=== PATIENT | male | born 1955 | race Caucasian/White ===

== ENCOUNTER 2018-09-03 10:34 | Outpatient (CLI) | payer MEDICARE ==
[2018-09-03 11:17] LABS: Estimated GFR-MDRD - POC Greater than 90
--- NOTE | 2018-09-03 13:31 | CT ---
CT ABDOMEN WITH ORAL AND IV CONTRAST: Date: 09/03/18 HISTORY: Chronic pancreatitis, epigastric pain. FINDINGS: Comparison made with exam of 03/14/15. The lung bases are clear. An 8.0 mm cyst in the liver is stable. The spleen, pancreas, adrenal glands , and left kidney are normal. Cysts in the right kidney are again seen. No free air, free fluid, or l ymphadenopathy seen in the abdomen. There are vascular calcifications without evidence of aneurysmal dilatation of the abdominal aorta. The small bowel loops are not abnormally dilated. Degenerative migue nges are present in the spine. A small, fat-containing ventral hernia is again seen. IMPRESSION: 1. Hepatic and right renal cyst. 2. Small, fat-containing ventral hernia. POS: OFF
== END 2018-09-03 10:35 | disposition home or self-care (01) ==
LOC: BICCT 10:34
PROVIDERS: ATTEND Internal Medicine Gastroenterology
DX: Z12.11 Encounter for screening for malignant neoplasm of colon (principal); K86.1 Other chronic pancreatitis; N28.1 Cyst of kidney, acquired; K76.89 Other specified diseases of liver; K43.9 Ventral hernia without obstruction or gangrene
CPT/HCPCS: 74160; 82565

== ENCOUNTER 2020-09-25 00:18 | Inpatient (IN) | payer MEDICARE ==
[2020-09-25] MEDS ORDERED: Ondansetron PF 4 MG/2 ML Vial ONE (00:40)
[2020-09-25 01:02] LABS: #Basophils 0.1 thou/uL (0.0-0.2); #Eosinphils 0.1 thou/uL (0.0-0.7); #Lymphocytes 2.7 thou/uL (1.20-3.40); #Monocytes 1.3 thou/uL (0.11-0.59); #Neutrophils 10.9 thou/uL (1.40-6.50); %Basophils 0.4 % (0.0-1.0); %Eosinophils 0.4 % (0.0-10.0); %Lymphocytes 18.2 % (21.0-51.0); %Monocytes 8.4 % (0.0-10.0); %Neutrophils 72.6 % (42.0-75.0); Hemoglobin 14.7 g/dL (14.0-18.0); Mean Corpuscular HGB CONC 35.1 g/dL (32.0-36.0); Mean Corpuscular Volume 91.1 fL (78.0-98.0); Mean Platelet Volume 9.9 fL (7.4-10.4); Platelet Count 179 thou/uL (130-400); Red Blood Cell (RBC) Count 4.59 mill/uL (4.70-6.10)
[2020-09-25] MEDS ORDERED: Aspirin Chewable 81 MG TAB ONE ×2 (01:03)
[2020-09-25 01:25] LABS: ALT (SGPT) 50 U/L (8-55); AST (SGOT) 158 U/L (5-34); Albumin 3.7 g/dL (3.4-4.8); Alkaline Phosphatase 72 U/L (40-110); Anion Gap 14 mmol/L (10-20); BUN (Urea Nitrogen) 11 mg/dL (8.4-25.7); Bilirubin, Total 0.8 mg/dL (0.2-1.2); Calc. Creatinine Clearance 0 mL/min (70-130); Calcium 8.9 mg/dL (7.8-10.44); Carbon Dioxide 24 mmol/L (23-31); Chloride 98 mmol/L (98-107); Globulin 3.8 g/dL (2.4-3.5); Glucose 295 mg/dL (80-115); Potassium 4.4 mmol/L (3.5-5.1); Protein, Total 7.5 g/dL (5.8-8.1); Sodium 132 mmol/L (136-145)
[2020-09-25 01:37] LABS: INR-International Normal Ratio 1.1; PTT 32.9 sec (22.9-36.1); Prothrombin Time 14.3 sec (12.0-14.7)
[2020-09-25] MEDS ORDERED: Nitroglycerin 100MG/250ML BOT 250 ML ONE (01:47)
[2020-09-25] MEDS ORDERED: Heparin 10,000 UNITS/ 10 ML VIAL ONE ×3 (01:47→13:05)
[2020-09-25] MEDS ORDERED: Verapamil 5 MG/2 ML VIAL ONE (01:48)
[2020-09-25] MEDS ORDERED: Adenosine 6 MG/2 ML VIAL ONE (01:48)
[2020-09-25 02:22] LABS: SARS-CoV-2 NAA Rapid Test Not Detected (NotDetected)
[2020-09-25] MEDS ORDERED: Milk Of Magnesia 30 ML UDCUP PO PRN (02:46)
[2020-09-25] MEDS ORDERED: Zolpidem Tartrate 5 MG TAB PO PRN (02:46)
[2020-09-25] MEDS ORDERED: traMADol HCl 50 MG TAB PO PRN (02:46)
[2020-09-25] MEDS ORDERED: Mag-Al 1200 mg/1200 mg/30 ML UDCUP PO PRN (02:46)
[2020-09-25] MEDS ORDERED: Acetaminophen/Codeine 30-300mg Tablet PO PRN (02:46)
[2020-09-25 02:57] LABS: CKMB 78.4 ng/mL (0-6.6)
[2020-09-25] MEDS ORDERED: Sodium Chloride 0.9% 1,000 ML IV SCH (03:00)
[2020-09-25 03:17] VITALS: BMI 27.2
--- NOTE | 2020-09-25 03:35 | CON ---
DATE OF CONSULTATION: REASON FOR CONSULTATION: Acute FL. HISTORY OF PRESENT ILLNESS: Mr. Welch is a 64-year-old gentleman, previous history of diabetes mellitus and tobacco abuse, who recently presented with fevers, chills, weakness, and congestion. He thought he had COVID. He said he proceeded to the emergency room for testing. He did give a previous history of chest pain on his review of systems that occurred yesterday. Given the above, he had an EKG that did show ST-segment elevation. Acute FL protocol was then started. PAST MEDICAL HISTORY: As above. MEDICATIONS: Include Novolin. ALLERGIES: NONE. SOCIAL HISTORY: As above. REVIEW OF SYSTEMS: A 10-point review of systems is reviewed as above, otherwise negative. PHYSICAL EXAMINATION: GENERAL: Patient is a pleasant male who is in no acute distress. The patient appears their stated age. VITAL SIGNS: Blood pressure 110/70, pulse 80, respirations 20. NEUROLOGIC: The patient is alert and oriented x3 with no focal neurologic deficits. HEENT: Sclerae without icterus. Mouth has moist mucous membranes with normal pallor. NECK: No JVD. Carotid upstroke brisk. No bruits bilaterally. LUNGS: Clear to auscultation with unlabored respirations. BACK: No scoliosis or kyphosis. CARDIAC: Regular rate and rhythm with normal S1 and S2. No S3 or S4 noted. No significant rubs, murmurs, thrills, or gallops noted throughout the precordium. PMI is not displaced. There is no parasternal heave. ABDOMEN: Soft, nontender, nondistended. No peritoneal signs present. No hepatosplenomegaly. No abnormal striae. EXTREMITIES: 2+ femoral and 2+ dorsalis pedis pulses. No cyanosis, clubbing, or edema. SKIN: No gross abnormalities. LABORATORY DATA: Current labs include a troponin of 74 with a CK-MB of 78. IMPRESSION: Acute myocardial infarction. RECOMMENDATIONS: Mr. Welch's symptoms for acute FL occurred likely yesterday. He did also admit to having previous chest pain noted. Given ST-segment elevation, we recommend urgent coronary angiography and possible PCI. I discussed the procedure in full detail with Mr. Welch. The risks of the procedure were also discussed. The risks of the procedure include but are not limited to the following: , stroke, FL, need for emergency surgery, loss of limb, bleeding, and infection, as well as a reaction to the dye causing kidney failure and needing long-term dialysis. I also discussed the risks of PCI to include all of the above including coronary dissection and perforation in addition to acute stent thrombosis and restenosis. All questions about the procedure were answered. Given the above, the patient agreed to proceed with coronary angiography and possible PCI. He gave consent. All questions were answered. Given the above, the patient agreed to proceed with the above procedure. Patient does wish to be DNR. This was not preempted by myself, but the patient states that has been his wish. This will be rescinded prior to the procedure. Job ID: [id number]
[2020-09-25 04:53] LABS: CKMB 67.2 ng/mL (0-6.6); Critical Call CKMB RESULT DECREASING
[2020-09-25 08:22] LABS: SARS-CoV-2 MS2 Positive; SARS-CoV-2 N Gene Negative; SARS-CoV-2 S Gene Negative; SARS-CoV-2 by NAA Not Detected (NotDetected); SARS-CoV-2 orf1ab Negative
--- NOTE | 2020-09-25 09:44 | RAD ---
AP CHEST: Date: 09/25/2020 HISTORY: Fatigue and malaise. FINDINGS: The lungs appear clear. No infiltrate identified. Heart and mediastinum unremarkable. Vascular markin gs normal. IMPRESSION: No acute findings. POS: AGW
[2020-09-25 09:53] LABS: CKMB 61.9 ng/mL (0-6.6)
[2020-09-25] MEDS: Clopidogrel Bisulfate 75 MG TAB PO SCH (10:04)
[2020-09-25] MEDS ORDERED: Dextrose 5% in Water 1,000 ML IV PRN (11:58)
[2020-09-25] MEDS ORDERED: HumaLOG 300 UNITS/3 ML VIAL SC PRN (11:58)
[2020-09-25] MEDS ORDERED: Dextrose 50% Abboject 50 ML SYRINGE SLOW IVP PRN (11:58)
--- NOTE | 2020-09-25 12:22 | OP ---
DATE OF PROCEDURE: 09/25/2020 ADDENDUM: Mr. Welch was brought urgently for coronary angiography. He had an occluded right coronary artery. right side. There were multiple attempts on trying to revascularize the mid right coronary artery. A Luge wire in addition to Whisper wire were used. The Luge wire could not pass into the distal right coronary artery. The Whisper wire was then placed and appeared to continue to pass into what was an RV marginal branch based on the tortuosity, but could not get completely through the distal right coronary artery. Initially, a 2.0 balloon was placed over the wire and inflated at the occlusion. The balloon was then advanced and tried to cross into the mid right coronary artery and could not. A 1.5 balloon also could not cross into the distal right coronary artery. Based on his troponin of 74, this likely is an old ME that occurred over the last several days. We will trend his CK-MB. He was completely asymptomatic during the entire case with no chest pain pressure and was stable. Job ID: [id number]
--- NOTE | 2020-09-25 12:47 | HP ---
Medical consult by Dr. Merchant. HISTORY OF PRESENT ILLNESS: A 64-year-old male with a history of type 2 diabetes mellitus, active tobacco abuse, presented initially with nausea, vomiting, and generalized weakness of 2-day duration. On Saturday, symptoms started and felt that he may have a COVID, so he came to the ER last night. He also experienced some chest discomfort and thought it is part of his body ache. Initial evaluation in the ER showed EKG with normal sinus rhythm, rate of 93 beats per minute, ST-elevations in the inferior leads. Dr. Merchant was contacted. Plan to go for PCI. Medical consult placed this morning for diabetic management. He is COVID negative. The patient is an active smoker, about a pack a day. He has no previous history of NH. REVIEW OF SYSTEMS: 13-point review of systems reviewed with the patient and pertinents are addressed in the history of present illness. Rest is negative including he has no fever or night sweats. Denies any headache, blurriness, tingling or numbness in his extremities. Denies productive cough. No rash or edema in the extremities. Rest of the review of systems is negative. ALLERGIES: HE HAS NO KNOWN DRUG ALLERGIES. PAST MEDICAL HISTORY: Type 2 diabetes mellitus, hypertension, and hyperlipidemia. SOCIAL HISTORY: The patient smokes a pack a day. Does not drink alcohol. FAMILY HISTORY: Significant for diabetes mellitus and hypertension. Mother has diabetes as well as history of NH. Father has lymphoma. MEDICATIONS: His home medications are not updated, but the patient states that he takes 70/30 insulin 60 units 3 times a day. PHYSICAL EXAMINATION: VITAL SIGNS: He is afebrile. Temperature 98.3, pulse is 94, blood pressure 108/65, and saturating 98% on the room air. GENERAL: The patient is alert, oriented x3. Nontoxic looking. CARDIOVASCULAR: Regular rate and rhythm without murmurs, rubs, or gallops. LUNGS: Clear to auscultation bilaterally without wheezing, rales, or rhonchi. ABDOMEN: Soft, nontender, and nondistended. Good bowel sounds. EXTREMITIES: Without any pitting edema. LABORATORY DATA: His white count is 15,000, hemoglobin is 14.7, and platelets 179. Sodium 132, creatinine 0.95, AST 158. Creatine kinase 2181. CK-MB is 61.9, the latest one. Troponin initially 74.9. IMPRESSION AND PLAN: 1. A 64-year-old male with a history of type 2 diabetes mellitus, presented with nausea, vomiting, generalized weakness, and found to have inferior wall myocardial infarction/ST-elevation myocardial infarction. He is status post catheterization. Official report is pending currently. The patient is started on Plavix at this time. Clear liquid diet. 2. Mild hyponatremia. We will follow with gentle hydration. 3. Type 2 diabetes mellitus. The patient started to have clear liquid diet. We will start him on sliding scale insulin as well as low-dose Novolin and then titrate the insulin as his blood glucose demands. 4. Elevated AST. Patient does state that he does not drink alcohol, but his transaminase pattern seems to be consistent with someone drinking alcohol. However, we will follow up on that. 5. He needs to be on daily baby aspirin along with statin. We will check his TSH, A1c, lipid panel for risk factor modifications. 6. Once his home medications reconciled, will continue those. For now, I will start him on Lipitor at 40 and titrate based on his LDL level. We will keep in mind his AST is little elevated. 7. 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 Job ID: [id number] MTDD
[2020-09-25 15:47] LABS: CKMB 46.9 ng/mL (0-6.6); Critical Call CKMB RESULT DECREASING
[2020-09-25] MEDS: Carvedilol 3.125 MG TAB PO SCH (18:31)
[2020-09-25] MEDS: HumuLIN 70/30 (300 UNITS/3 ML VIAL) SC SCH (19:58)
[2020-09-25] MEDS ORDERED: Atorvastatin Calcium 20 MG TAB PO SCH (21:00)
[2020-09-25 21:03] LABS: CKMB 34.8 ng/mL (0-6.6); Critical Call CKMB RESULT DECREASING
[2020-09-26 04:44] LABS: #Eosinphils 0.1 thou/uL (0.0-0.7); #Lymphocytes 2.9 thou/uL (1.20-3.40); #Monocytes 1.2 thou/uL (0.11-0.59); #Neutrophils 8.8 thou/uL (1.40-6.50); %Basophils 0.2 % (0.0-1.0); %Eosinophils 0.4 % (0.0-10.0); %Lymphocytes 22.5 % (21.0-51.0); %Neutrophils 67.9 % (42.0-75.0); Hemoglobin 11.9 g/dL (14.0-18.0); Mean Corpuscular HGB CONC 33.8 g/dL (32.0-36.0); Mean Corpuscular Volume 91.7 fL (78.0-98.0); Mean Platelet Volume 9.9 fL (7.4-10.4); Platelet Count 153 thou/uL (130-400); RBC Distribution Width 12.8 % (11.5-14.5); Red Blood Cell (RBC) Count 3.84 mill/uL (4.70-6.10); White Blood Cell (WBC) Count 12.9 thou/uL (4.8-10.8)
[2020-09-26 04:49] LABS: Hemoglobin A1c 10.2 % (4.0-6.0)
[2020-09-26] MEDS ORDERED: Acetaminophen 325 MG TAB PO PRN (04:55)
[2020-09-26 05:05] LABS: ALT (SGPT) 31 U/L (8-55); AST (SGOT) 72 U/L (5-34); Albumin 3.1 g/dL (3.4-4.8); Alkaline Phosphatase 61 U/L (40-110); Bilirubin, Direct 0.3 mg/dL (0.1-0.3); Bilirubin, Total 0.6 mg/dL (0.2-1.2); Protein, Total 6.5 g/dL (5.8-8.1)
[2020-09-26 05:13] LABS: ALT (SGPT) 33 U/L (8-55); AST (SGOT) 81 U/L (5-34); Alkaline Phosphatase 60 U/L (40-110); Anion Gap 13 mmol/L (10-20); BUN (Urea Nitrogen) 10 mg/dL (8.4-25.7); Bilirubin, Total 0.6 mg/dL (0.2-1.2); Calc. Creatinine Clearance 118 mL/min (70-130); Calcium 7.8 mg/dL (7.8-10.44); Carbon Dioxide 22 mmol/L (23-31); Cardiac Risk 5.2 (Less than 4.5); Chloride 101 mmol/L (98-107); Cholesterol 176 mg/dl (< 200 Desired); Globulin 3.9 g/dL (2.4-3.5); Glucose 140 mg/dL (80-115); HDL Cholesterol 34 mg/dL (>60 Neg Risk); LDL Cholesterol, Calculated 111 mg/dL; Potassium 4.8 mmol/L (3.5-5.1); Protein, Total 6.9 g/dL (5.8-8.1); Sodium 131 mmol/L (136-145); Triglycerides 155 mg/dL (Less than 150)
[2020-09-26] MEDS: HumuLIN 70/30 (300 UNITS/3 ML VIAL) SC SCH ×3 (08:25→17:04)
[2020-09-26] MEDS: Clopidogrel Bisulfate 75 MG TAB PO SCH (08:26)
[2020-09-26] MEDS: Carvedilol 3.125 MG TAB PO SCH ×2 (08:26→17:04)
[2020-09-26] MEDS: Aspirin 81 mg Enteric Coated Tablet PO SCH (08:26)
--- NOTE | 2020-09-26 10:41 | PDOC.HOSPP ---
- Subjective Encounter Date: 09/26/20 Encounter Time: 09:10 Subjective: pt has no complaints, tried to walk around, no CP or SOB. - Objective Vital Signs & Weight: Vital Signs (12 hours) Temp Pulse Resp BP Pulse Ox 09/26/20 08:04 98.3 F 81 12 101/60 96 09/26/20 05:11 100.3 F H 09/26/20 04:00 100.3 F H 86 16 100/55 L 93 L 09/26/20 00:00 94 16 114/62 96 Weight Weight 190 lb Most Recent Monitor Data Heart Rate from ECG 98 NIBP 91/68 NIBP BP-Mean 75 Respiration from ECG 19 SpO2 91 I&O: 09/25/20 09/26/20 09/27/20 06:59 06:59 06:59 Intake Total 300 720 Output Total 250 280 Balance 50 440 Result Diagrams: 09/26/20 04:21 09/26/20 04:21 Additional Labs: Accuchecks 09/26/20 09/25/20 05:38 20:30 POC Glucose 143 H 290 H Hospitalist ROS - Medication Medications: Active Medications Generic Name Dose Route Start Last Admin Trade Name Freq PRN Reason Stop Dose Admin Acetaminophen 650 mg 09/26/20 04:55 09/26/20 05:11 Acetaminophen 325 Mg Tab PO 650 mg Q6H PRN Administration Fever/Mild Pain Aspirin 81 mg 09/26/20 09:00 09/26/20 08:26 Aspirin 81 Mg Enteric Coated Tablet PO 81 mg DAILY JABARI Administration Carvedilol 3.125 mg 09/25/20 17:00 09/26/20 08:26 Carvedilol 3.125 Mg Tab PO 3.125 mg BID- JABARI Administration Clopidogrel Bisulfate 75 mg 09/25/20 09:00 09/26/20 08:26 Clopidogrel Bisulfate 75 Mg Tab PO 75 mg DAILY JABARI Administration Insulin Human Isoph/Insulin Regular 30 units 09/25/20 17:00 09/26/20 08:25 Humulin 70/30 (300 Units/3 Ml Vial) SC 30 unit AC JABARI Administration - Exam General Appearance: NAD, awake alert Eye: PERRL ENT: normocephalic atraumatic Neck: supple Heart: RRR Respiratory: CTAB, normal chest expansion Gastrointestinal: soft, normal bowel sounds Neurological: cranial nerve grossly intact, no focal deficits Hosp A/P - Plan Inf. wall SC -s/p attempt for PCI at [facility] - with LDL of 111 -- increased lipitor to 40 hs Uncon DM2 --a1c of 10.2 --humolog 70/30 and SSI Mild Hyponatremia, Na 131 - monitor. PT consult dc home with [facility] vs.. rehab, when cardiology clears
[2020-09-26] MEDS ORDERED: Sodium Chloride 0.9% 1,000 ML IV SCH (17:15)
[2020-09-26] MEDS ORDERED: Atorvastatin Calcium 20 MG TAB PO SCH (21:00)
[2020-09-26] MEDS: Icosapent Ethyl 1 GM CAPSULE PO SCH (21:17)
[2020-09-27 04:53] LABS: #Basophils 0.1 thou/uL (0.0-0.2); #Eosinphils 0.1 thou/uL (0.0-0.7); #Lymphocytes 2.7 thou/uL (1.20-3.40); #Monocytes 0.9 thou/uL (0.11-0.59); #Neutrophils 7.8 thou/uL (1.40-6.50); %Basophils 0.6 % (0.0-1.0); %Eosinophils 0.7 % (0.0-10.0); %Lymphocytes 23.4 % (21.0-51.0); %Monocytes 7.7 % (0.0-10.0); %Neutrophils 67.6 % (42.0-75.0); Hemoglobin 11.6 g/dL (14.0-18.0); Mean Corpuscular HGB CONC 31.9 g/dL (32.0-36.0); Mean Corpuscular Hemoglobin 29.4 pg (27.0-31.0); Mean Corpuscular Volume 92.1 fL (78.0-98.0); Mean Platelet Volume 10.4 fL (7.4-10.4); Platelet Count 171 thou/uL (130-400); RBC Distribution Width 12.7 % (11.5-14.5); Red Blood Cell (RBC) Count 3.95 mill/uL (4.70-6.10); White Blood Cell (WBC) Count 11.5 thou/uL (4.8-10.8)
[2020-09-27 07:47] VITALS: TEMP 98.2
[2020-09-27] MEDS: Aspirin 81 mg Enteric Coated Tablet PO SCH (07:49)
[2020-09-27] MEDS: Clopidogrel Bisulfate 75 MG TAB PO SCH (07:49)
[2020-09-27] MEDS: Icosapent Ethyl 1 GM CAPSULE PO SCH (07:50)
[2020-09-27] MEDS: Carvedilol 3.125 MG TAB PO SCH (07:50)
[2020-09-27] MEDS: HumuLIN 70/30 (300 UNITS/3 ML VIAL) SC SCH (07:52)
--- NOTE | 2020-09-27 10:51 | PDOC.DS.DS ---
Provider - Provider Date of Admission: 09/25/20 02:13 Date of Discharge: 09/27/20 Admitting Provider: Annamarie Tinsley Consultations: Cardiology (Dr. Merchant) Primary Care Physician: Sherif Stein MD Course - Hospital Course Hospital Course: Discharge diagnoses: 1. STEMI 2. COVID-19 PCR test negative 3. Hyponatremia 4. Hypoalbuminemia Hospital course: Patient is a pleasant 64-year-old gentleman who was admitted to the hospital on September 25, [address] elevation myocardial infarction. He was seen by car diology service and underwent cardiac catheterization. He had an occluded right coronary artery. There were multiple attempts to revascularize the mid right coronary artery. His troponin elevation at 74, rn labor delivery felt that this is likely an old [place] that occurred over several days. Patient remained asymptomatic and is being discharged home in a stable condition. Many thanks for allowing me to participate in your patient's care. Please feel free to contact me with any questions or concerns. Discharge destination: Home Total amount of time spent coordinating this discharge: 22 minutes Resuscitation Status: 09/25/20 02:56 Resuscitation Status Routine Resuscitation Status: DNAR: NO Resuscitation Discussed with: Discussed with pt. Pt previously wanted DNR - Labs Lab Results: 09/27/20 04:13 09/26/20 04:21 Abnormal Lab Results - Last 48 hrs 09/25/20 14:52: CK-MB (CK-2) 46.9 H* 09/25/20 20:20: CK-MB (CK-2) 34.8 H* 09/26/20 04:21: Sodium 131 L, Carbon Dioxide 22 L, AST 81 H, Albumin 3.0 L, Globulin 3.9 H, Albumin/Globulin Ratio 0.8 L, Triglycerides 155 H 09/26/20 04:21: WBC 12.9 H, RBC 3.84 L, Hgb 11.9 L, Hct 35.2 L, Neutrophils # 8.8 H, Monocytes # 1.2 H 09/26/20 04:21: Hemoglobin A1c 10.2 H 09/26/20 04:21: AST 72 H, Albumin 3.1 L 09/27/20 04:13: WBC 11.5 H, RBC 3.95 L, Hgb 11.6 L, Hct 36.4 L, MCHC 31.9 L, Neutrophils # 7.8 H, Monocytes # 0.9 H Microbiology - Entire Visit 09/25/20 04:40 Nasopharynx Influenza Types A,B Direct EIA - Final - Physical Exam Vitals: Vital Signs (12 hours) Temp Pulse Resp BP Pulse Ox 09/27/20 07:43 98.2 F 86 17 108/66 91 L 09/27/20 04:00 86 114/64 93 L 09/26/20 23:53 83 113/68 Weight Weight 190 lb Most Recent Monitor Data Heart Rate from ECG 98 NIBP 91/68 NIBP BP-Mean 75 Respiration from ECG 19 SpO2 91 Physical Exam: The patient was seen and examined on the day of discharge. Patient denies chest pain or shortness of breath. Vital signs are stable. S1 and S2 are heard. Lungs are clear to auscultation bilaterally. Plan - Discharge Medications Prescriptions: Nitroglycerin [Nitrostat] 0.4 mg SL Q5MIN PRN #25 tab PRN Reason: Chest Pain Carvedilol [Coreg] 6.25 mg PO BID #60 tab Aspirin [Ecotrin Low Strength] 81 mg PO DAILY #30 tab Atorvastatin Calcium [Lipitor] 40 mg PO DAILY #30 tab Clopidogrel Bisulfate [Plavix] 75 mg PO DAILY #30 tab Icosapent Ethyl [Vascepa] 2 gm PO BID #120 capsule Home Medications: Medication Instructions Recorded Confirmed Type HumuLIN 70/30 [HumuLIN 70/30 Vial] 30 units SC LOCATED [facility]IN [facility] 09/25/20 09/25/20 History Aspirin [Ecotrin Low Strength] 81 mg PO DAILY #30 tab 09/27/20 Rx Atorvastatin Calcium [Lipitor] 40 mg PO DAILY #30 tab 09/27/20 Rx Carvedilol [Coreg] 6.25 mg PO BID #60 tab 09/27/20 Rx Clopidogrel Bisulfate [Plavix] 75 mg PO DAILY #30 tab 09/27/20 Rx Icosapent Ethyl [Vascepa] 2 gm PO BID #120 capsule 09/27/20 Rx Nitroglycerin [Nitrostat] 0.4 mg SL Q5MIN PRN #25 tab 09/27/20 Rx Allergies: No Known Drug Allergies Allergy (Verified 09/25/20 03:13) - Discharge Instructions Discharge Instructions:: FOCUS: Transition from Acute Care after Discharge GOAL: Successful transition to care in the community YOUR TASKS: (1) review all information outlined in your discharge packet (2) follow any instructions outlined in your discharge packet (3) contact your primary care provider if you have questions or need additional assistance See patient discharge instruction sheet for detailed teaching. Patient verbalizes understanding of medications and is able to verbalize follow-up care. See Discharge Plan for additional discharge information. Patient secured in private vehicle prior to departure. Activity:: Activity as Tolerated Nourishment:: Diabetic Diet, Heart Healthy Diet - Follow up Plan Referrals: Cardiac Rehab - [facility] [Outside] - 10/07/20 9:00 am (You have been scheduled for outpatient cardiac rehab. Your initial evaluation is on 10/07/20 at 9:00am. Please arrive 10-15 min early and bring a list of your current medications as well as your insurance card(s). Please come in clothes you are comfortable walking in. If you have any questions or need to reschedule please call [phone]. ) Sherif Stein MD [Primary Care Provider] - 10/04/20 9:00 am Pato Hernandez MD [Active] - 10/12/20 10:30 am Disposition: HOME Quality - Care Measures CORE MEASURES:: AMI - Stroke/TIA Did you prescribe antithrombotic therapy?: Yes Did you prescribe anticoagulant for A Fib/Flutter?: No Specify reason for no DC anticoagulant: Treatment not indicated Did you prescribe a statin medication?: Yes
[2020-09-27 11:30] VITALS: BP 109/66
[2020-09-27] MEDS ORDERED: Carvedilol 6.25 MG TAB PO SCH (17:00)
== END 2020-09-27 12:34 | disposition home or self-care (01) | DRG 251 ==
LOC: ERS 00:18 → SDC/OP 01:46 → CCU 02:13 → 2NO 14:24
PROVIDERS: ADMIT Internal Medicine Cardiovascular Disease; ATTEND Internal Medicine Cardiovascular Disease
PROC: 4A023N7 Measurement of Cardiac Sampling and Pressure, Left Heart, Percutaneous Approach (ICD-10-PCS; principal; 2020-09-25)
PROC: 02703ZZ Dilation of Coronary Artery, One Artery, Percutaneous Approach (ICD-10-PCS; 2020-09-25)
PROC: B2111ZZ Fluoroscopy of Multiple Coronary Arteries using Low Osmolar Contrast (ICD-10-PCS; 2020-09-25)
DX: I21.19 ST elevation (STEMI) myocardial infarction involving other coronary artery of inferior wall (principal); E87.1 Hypo-osmolality and hyponatremia; Z20.822 Contact with and (suspected) exposure to COVID-19; Z66 Do not resuscitate; E11.65 Type 2 diabetes mellitus with hyperglycemia; E78.5 Hyperlipidemia, unspecified; F41.9 Anxiety disorder, unspecified; F32.9 Major depressive disorder, single episode, unspecified; F17.210 Nicotine dependence, cigarettes, uncomplicated; I10 Essential (primary) hypertension; E88.09 Other disorders of plasma-protein metabolism, not elsewhere classified; Z90.49 Acquired absence of other specified parts of digestive tract; Z79.4 Long term (current) use of insulin
CPT/HCPCS: 36415; 36416; 71045; 76942; 80053; 80061; 82550; 82553; 83036; 83735; 84443; 84484; 85025; 85347; 85610; 85730; 86850; 86900; 86901; 87635; 87804; 92920; 93005; 93010; 93306; 93458; 93798; 94760; 96374; 96375; 97139; 99152; 99153; C1769; J0153; J1644; J2405; U0002; U0003

== ENCOUNTER 2021-01-10 18:30 | Observation (INO) | payer MEDICARE ==
[2021-01-10] MEDS ORDERED: Tranexamic Acid 1,000 MG/10 ML VIAL ONE (18:38)
[2021-01-10 19:20] LABS: #Basophils 0.1 thou/uL (0.0-0.2); #Eosinphils 0.3 thou/uL (0.0-0.7); #Lymphocytes 3.5 thou/uL (1.20-3.40); #Monocytes 0.8 thou/uL (0.11-0.59); #Neutrophils 5.2 thou/uL (1.40-6.50); %Eosinophils 3.2 % (0.0-10.0); %Lymphocytes 35.5 % (21.0-51.0); %Monocytes 7.6 % (0.0-10.0); %Neutrophils 52.8 % (42.0-75.0); Hemoglobin 14.4 g/dL (14.0-18.0); Mean Corpuscular HGB CONC 33.5 g/dL (32.0-36.0); Mean Corpuscular Hemoglobin 29.8 pg (27.0-31.0); Mean Corpuscular Volume 88.9 fL (78.0-98.0); Mean Platelet Volume 9.5 fL (7.4-10.4); Platelet Count 205 thou/uL (130-400); RBC Distribution Width 13.4 % (11.5-14.5); Red Blood Cell (RBC) Count 4.83 mill/uL (4.70-6.10); White Blood Cell (WBC) Count 9.8 thou/uL (4.8-10.8)
[2021-01-10 19:25] LABS: PTT 25.3 sec (22.9-36.1)
[2021-01-10 19:38] LABS: ALT (SGPT) 26 U/L (8-55); AST (SGOT) 17 U/L (5-34); Alkaline Phosphatase 86 U/L (40-110); Anion Gap 16 mmol/L (10-20); BUN (Urea Nitrogen) 14 mg/dL (8.4-25.7); Bilirubin, Total 0.5 mg/dL (0.2-1.2); Calc. Creatinine Clearance 0 mL/min (70-130); Calcium 9.4 mg/dL (7.8-10.44); Carbon Dioxide 25 mmol/L (23-31); Chloride 101 mmol/L (98-107); Globulin 3.4 g/dL (2.4-3.5); Glucose 299 mg/dL (80-115); Potassium 4.6 mmol/L (3.5-5.1); Protein, Total 7.4 g/dL (5.8-8.1); Sodium 137 mmol/L (136-145)
[2021-01-10 20:02] LABS: CKMB 2.4 ng/mL (0-6.6)
[2021-01-10] MEDS ORDERED: CEFAZOLIN 1 GM VIAL ONE (20:11)
[2021-01-10] MEDS ORDERED: Acetaminophen 325 MG TAB PO PRN (21:41)
[2021-01-10] MEDS ORDERED: Ondansetron PF 4 MG/2 ML Vial IVP PRN (21:41)
[2021-01-10] MEDS ORDERED: Ondansetron ODT 4 MG TAB PO PRN (21:41)
[2021-01-10] MEDS ORDERED: Dextrose 5% in Water 1,000 ML IV PRN (21:46)
[2021-01-10] MEDS ORDERED: Dextrose 50% Abboject 50 ML SYRINGE SLOW IVP PRN (21:46)
[2021-01-10] MEDS ORDERED: HumaLOG 300 UNITS/3 ML VIAL SC PRN ×2 (21:46)
[2021-01-10 23:47] LABS: Hemoglobin 13.8 g/dL (14.0-18.0)
[2021-01-11 00:32] VITALS: BMI 28.8
[2021-01-11 00:50] LABS: Troponin I 0.037 ng/mL (< 0.028)
[2021-01-11 01:35] LABS: Troponin I 0.034 ng/mL (< 0.028)
[2021-01-11] MEDS ORDERED: HYDROcodone/Acetaminophen 5/325 mg Tablet PO SCH (04:45)
[2021-01-11 05:16] LABS: #Basophils 0.1 thou/uL (0.0-0.2); #Eosinphils 0.4 thou/uL (0.0-0.7); #Monocytes 0.7 thou/uL (0.11-0.59); #Neutrophils 5.1 thou/uL (1.40-6.50); %Basophils 0.6 % (0.0-1.0); %Eosinophils 3.5 % (0.0-10.0); %Monocytes 6.8 % (0.0-10.0); Hemoglobin 13.5 g/dL (14.0-18.0); Mean Corpuscular HGB CONC 33.5 g/dL (32.0-36.0); Mean Corpuscular Hemoglobin 29.8 pg (27.0-31.0); Mean Corpuscular Volume 88.9 fL (78.0-98.0); Mean Platelet Volume 9.4 fL (7.4-10.4); Platelet Count 202 thou/uL (130-400); RBC Distribution Width 13.3 % (11.5-14.5); Red Blood Cell (RBC) Count 4.54 mill/uL (4.70-6.10); White Blood Cell (WBC) Count 10.2 thou/uL (4.8-10.8)
[2021-01-11 05:37] LABS: Anion Gap 13 mmol/L (10-20); BUN (Urea Nitrogen) 15 mg/dL (8.4-25.7); Calc. Creatinine Clearance 100 mL/min (70-130); Calcium 9.3 mg/dL (7.8-10.44); Carbon Dioxide 25 mmol/L (23-31); Chloride 101 mmol/L (98-107); Glucose 338 mg/dL (80-115); Potassium 4.1 mmol/L (3.5-5.1); Sodium 135 mmol/L (136-145)
[2021-01-11] MEDS ORDERED: Nitroglycerin 0.4 MG TAB (25 Tab Bottle) SL PRN (07:16)
[2021-01-11] MEDS ORDERED: HumuLIN 70/30 (300 UNITS/3 ML VIAL) SC SCH (07:30)
[2021-01-11 08:39] VITALS: BP 159/77; TEMP 97.5
[2021-01-11] MEDS ORDERED: Acetaminophen/Codeine 30-300mg Tablet PO PRN ×2 (08:59→09:41)
[2021-01-11] MEDS ORDERED: Non-Formulary Item 1 EACH (Icosapent Ethyl 1 GM Capsule) PO SCH (09:00)
[2021-01-11] MEDS ORDERED: Icosapent Ethyl 1 GM CAPSULE PO SCH (09:00)
[2021-01-11] MEDS ORDERED: Carvedilol 6.25 MG TAB PO SCH (09:00)
[2021-01-11] MEDS ORDERED: Amoxicillin/Potassium Clav 875 MG TAB PO SCH (09:00)
[2021-01-11] MEDS ORDERED: Atorvastatin Calcium 40 MG TAB PO SCH (09:00)
[2021-01-11 10:25] LABS: SARS-CoV-2 PCR NAA for Saliva Not Detected (NotDetected)
== END 2021-01-11 10:27 | disposition home or self-care (01) ==
LOC: ERS 18:30 → 2SW 20:41
PROVIDERS: ADMIT Student in an Organized Health Care Education/Training Program; ATTEND Internal Medicine
DX: R04.0 Epistaxis (principal); E87.1 Hypo-osmolality and hyponatremia; R77.8 Other specified abnormalities of plasma proteins; E11.9 Type 2 diabetes mellitus without complications; E78.5 Hyperlipidemia, unspecified; I25.2 Old myocardial infarction; I10 Essential (primary) hypertension; Z66 Do not resuscitate; Z87.891 Personal history of nicotine dependence; Z79.4 Long term (current) use of insulin; Z79.899 Other long term (current) drug therapy; Z20.822 Contact with and (suspected) exposure to COVID-19
CPT/HCPCS: 80048; 80053; 82553; 82962 ×2; 84484 ×3; 85014; 85018; 85025 ×2; 85610; 85730; 93005; G0378 ×3; U0003; U0005; 30903; 36415; 36416; 87635; 96365; J0690; J1815

== ENCOUNTER 2021-02-27 09:26 | Observation (INO) | payer MEDICARE ==
[2021-02-27 10:37] LABS: #Basophils 0.1 thou/uL (0.0-0.2); #Eosinphils 0.2 thou/uL (0.0-0.7); #Monocytes 0.6 thou/uL (0.11-0.59); #Neutrophils 4.7 thou/uL (1.40-6.50); %Basophils 1.3 % (0.0-1.0); %Eosinophils 2.1 % (0.0-10.0); %Lymphocytes 35.4 % (21.0-51.0); %Monocytes 6.6 % (0.0-10.0); %Neutrophils 54.6 % (42.0-75.0); Hemoglobin 14.9 g/dL (14.0-18.0); Mean Corpuscular HGB CONC 34.6 g/dL (32.0-36.0); Mean Corpuscular Hemoglobin 31.2 pg (27.0-31.0); Mean Corpuscular Volume 90.3 fL (78.0-98.0); Mean Platelet Volume 10.3 fL (7.4-10.4); Platelet Count 179 thou/uL (130-400); RBC Distribution Width 13.6 % (11.5-14.5); Red Blood Cell (RBC) Count 4.78 mill/uL (4.70-6.10); White Blood Cell (WBC) Count 8.5 thou/uL (4.8-10.8)
[2021-02-27 10:46] LABS: ALT (SGPT) 28 U/L (8-55); AST (SGOT) 17 U/L (5-34); Alkaline Phosphatase 81 U/L (40-110); Anion Gap 16 mmol/L (10-20); BUN (Urea Nitrogen) 18 mg/dL (8.4-25.7); Bilirubin, Total 0.3 mg/dL (0.2-1.2); Calc. Creatinine Clearance 0 mL/min (70-130); Calcium 9.8 mg/dL (7.8-10.44); Carbon Dioxide 24 mmol/L (23-31); Chloride 99 mmol/L (98-107); Glucose 387 mg/dL (80-115); Potassium 4.6 mmol/L (3.5-5.1); Sodium 134 mmol/L (136-145)
[2021-02-27 13:45] LABS: Troponin I 0.013 ng/mL (< 0.028)
[2021-02-27] MEDS ORDERED: Acetaminophen 650 MG Suppository PR PRN (14:23)
[2021-02-27] MEDS ORDERED: Acetaminophen 325 MG TAB PO PRN (14:23)
[2021-02-27] MEDS ORDERED: Calcium Carbonate 500 MG ChewTAB PO PRN (14:23)
[2021-02-27] MEDS ORDERED: Nitroglycerin 0.4 MG TAB (25 Tab Bottle) SL PRN (14:25)
[2021-02-27] MEDS ORDERED: Dextrose 50% Abboject 50 ML SYRINGE SLOW IVP PRN (14:37)
[2021-02-27] MEDS ORDERED: Insulin Regular 300 UNITS/3 ML VIAL SC PRN (14:37)
[2021-02-27] MEDS ORDERED: Dextrose 5% in Water 1,000 ML IV PRN (14:37)
[2021-02-27 16:35] LABS: Troponin I 0.017 ng/mL (< 0.028)
[2021-02-27] MEDS ORDERED: Aspirin 325 MG TAB ONE (18:14)
[2021-02-27] MEDS ORDERED: Aspirin 325 MG TAB PO SCH (18:15)
[2021-02-27] MEDS: Insulin Regular 300 UNITS/3 ML VIAL SC PRN (18:18)
[2021-02-27 19:15] VITALS: BMI 28.0
[2021-02-27] MEDS: Carvedilol 6.25 MG TAB PO SCH (21:34)
[2021-02-28 05:22] LABS: #Basophils 0.1 thou/uL (0.0-0.2); #Eosinphils 0.3 thou/uL (0.0-0.7); #Lymphocytes 3.8 thou/uL (1.20-3.40); #Monocytes 0.6 thou/uL (0.11-0.59); %Basophils 1.1 % (0.0-1.0); %Eosinophils 2.9 % (0.0-10.0); %Lymphocytes 43.6 % (21.0-51.0); %Monocytes 6.9 % (0.0-10.0); %Neutrophils 45.5 % (42.0-75.0); Hemoglobin 14.3 g/dL (14.0-18.0); Mean Corpuscular Hemoglobin 29.9 pg (27.0-31.0); Mean Corpuscular Volume 90.7 fL (78.0-98.0); Platelet Count 170 thou/uL (130-400); RBC Distribution Width 13.6 % (11.5-14.5); Red Blood Cell (RBC) Count 4.78 mill/uL (4.70-6.10); White Blood Cell (WBC) Count 8.8 thou/uL (4.8-10.8)
[2021-02-28 05:53] LABS: Anion Gap 13 mmol/L (10-20); BUN (Urea Nitrogen) 16 mg/dL (8.4-25.7); Calc. Creatinine Clearance 101 mL/min (70-130); Calcium 9.2 mg/dL (7.8-10.44); Carbon Dioxide 23 mmol/L (23-31); Cardiac Risk 5.6 (Less than 4.5); Chloride 101 mmol/L (98-107); Cholesterol 158 mg/dl (< 200 Desired); Glucose 316 mg/dL (80-115); HDL Cholesterol 28 mg/dL (>60 Neg Risk); Potassium 4.2 mmol/L (3.5-5.1); Sodium 133 mmol/L (136-145); Triglycerides 475 mg/dL (Less than 150)
[2021-02-28 05:58] LABS: LDL Cholesterol, Calculated 35 mg/dL
[2021-02-28] MEDS: Insulin Regular 300 UNITS/3 ML VIAL SC PRN (06:17)
[2021-02-28 08:36] VITALS: BP 125/67; TEMP 98.2
[2021-02-28] MEDS: Carvedilol 6.25 MG TAB PO SCH (08:58)
[2021-02-28] MEDS ORDERED: Aspirin Chewable 81 MG TAB PO SCH (09:00)
[2021-02-28] MEDS ORDERED: HumuLIN 70/30 (300 UNITS/3 ML VIAL) SC SCH (09:00)
[2021-02-28 11:14] LABS: SARS-CoV-2 PCR by NAA Not Detected (NotDetected)
[2021-02-28] MEDS ORDERED: Atorvastatin Calcium 40 MG TAB PO SCH (21:00)
== END 2021-02-28 11:52 | disposition home or self-care (01) ==
LOC: ERS 09:26 → ERHOLD 12:53 → 2SW 16:48
PROVIDERS: ADMIT Internal Medicine; ATTEND Internal Medicine
DX: R07.89 Other chest pain (principal); I25.2 Old myocardial infarction; I25.10 Atherosclerotic heart disease of native coronary artery without angina pectoris; I25.82 Chronic total occlusion of coronary artery; I10 Essential (primary) hypertension; E78.5 Hyperlipidemia, unspecified; E11.9 Type 2 diabetes mellitus without complications; F17.210 Nicotine dependence, cigarettes, uncomplicated; Z79.82 Long term (current) use of aspirin; Z79.899 Other long term (current) drug therapy; Z20.822 Contact with and (suspected) exposure to COVID-19
CPT/HCPCS: 71045; 80048; 80053; 80061; 82962; 84484 ×2; 85025 ×2; 93005; 94760; 99285; U0003; U0005; 36415; 36416; G0378; J1815

== ENCOUNTER 2021-07-19 17:12 | Inpatient (IN) | payer MEDICARE ==
[2021-07-19 20:35] VITALS: BMI 26.4
[2021-07-19] MEDS ORDERED: Ondansetron PF 4 MG/2 ML Vial IVP PRN (21:00)
[2021-07-19] MEDS ORDERED: Ondansetron ODT 4 MG TAB SL PRN (21:00)
[2021-07-19] MEDS ORDERED: Acetaminophen 325 MG TAB PO PRN (21:00)
[2021-07-19 23:06] LABS: CKMB 2.9 ng/mL (0-6.6)
[2021-07-19] MEDS ORDERED: Dextrose 5% in Water 1,000 ML IV PRN (23:51)
[2021-07-19] MEDS ORDERED: Dextrose 50% Abboject 50 ML SYRINGE SLOW IVP PRN (23:51)
[2021-07-20] MEDS: Nicotine 21 MG PATCH TD SCH (00:23)
[2021-07-20 04:48] LABS: #Basophils 0.1 thou/uL (0.0-0.2); #Eosinphils 0.3 thou/uL (0.0-0.7); #Lymphocytes 3.8 thou/uL (1.20-3.40); #Monocytes 0.8 thou/uL (0.11-0.59); %Basophils 0.7 % (0.0-1.0); %Eosinophils 2.5 % (0.0-10.0); %Lymphocytes 38.6 % (21.0-51.0); %Monocytes 7.7 % (0.0-10.0); %Neutrophils 50.4 % (42.0-75.0); Hemoglobin 14.6 g/dL (14.0-18.0); Mean Corpuscular HGB CONC 33.1 g/dL (32.0-36.0); Mean Corpuscular Hemoglobin 31.3 pg (27.0-31.0); Mean Corpuscular Volume 94.4 fL (78.0-98.0); Mean Platelet Volume 10.2 fL (7.4-10.4); Platelet Count 183 thou/uL (130-400); Red Blood Cell (RBC) Count 4.66 mill/uL (4.70-6.10); White Blood Cell (WBC) Count 9.9 thou/uL (4.8-10.8)
[2021-07-20 05:06] LABS: Anion Gap 10 mmol/L (10-20); BUN (Urea Nitrogen) 14 mg/dL (8.4-25.7); Calc. Creatinine Clearance 116 mL/min (70-130); Calcium 9.4 mg/dL (7.8-10.44); Carbon Dioxide 26 mmol/L (23-31); Chloride 106 mmol/L (98-107); Glucose 209 mg/dL (80-115); Sodium 138 mmol/L (136-145)
[2021-07-20] MEDS ORDERED: Dextrose 5% in Water 1,000 ML IV PRN (06:07)
[2021-07-20] MEDS ORDERED: Dextrose 50% Abboject 50 ML SYRINGE SLOW IVP PRN (06:07)
[2021-07-20] MEDS: HumaLOG 300 UNITS/3 ML VIAL SC PRN ×3 (06:22→21:13)
[2021-07-20] MEDS ORDERED: FLU VACC QS2021-22(65YR UP)/PF 240 MCG/0.7 ML SYRINGE IM ONE (09:00)
[2021-07-20] MEDS: Multivit, Therapeutic 1 TAB PO SCH (09:21)
[2021-07-20] MEDS: Aspirin 81 mg Enteric Coated Tablet PO SCH (09:21)
[2021-07-20] MEDS: Lantus 1000 UNITS/10 ML VIAL SC SCH (11:04)
[2021-07-20 11:41] LABS: Troponin I 0.025 ng/mL (< 0.028)
[2021-07-21] MEDS: Nicotine 21 MG PATCH TD SCH (00:05)
[2021-07-21] MEDS: Multivit, Therapeutic 1 TAB PO SCH (08:29)
[2021-07-21] MEDS: Aspirin 81 mg Enteric Coated Tablet PO SCH (08:29)
[2021-07-21] MEDS: Lantus 1000 UNITS/10 ML VIAL SC SCH (08:29)
[2021-07-21] MEDS ORDERED: Heparin 10,000 UNITS/ 10 ML VIAL ONE (08:59)
[2021-07-21] MEDS ORDERED: Lidocaine 1% (PF) 30 ML VIAL ONE (09:00)
[2021-07-21] MEDS ORDERED: Fentanyl 100 MCG/2 ML VIAL ONE ×2 (10:59→12:11)
[2021-07-21] MEDS ORDERED: Ondansetron PF 4 MG/2 ML Vial ONE (11:06)
[2021-07-21] MEDS ORDERED: Lidocaine 1% PF 5 ML VIAL ONE (11:06)
[2021-07-21] MEDS ORDERED: PROPOFOL 200 MG/20 ML VIAL ONE (11:06)
[2021-07-21] MEDS ORDERED: Phenylephrine 10 MG/ML VIAL ONE (11:26)
[2021-07-21] MEDS: HumaLOG 300 UNITS/3 ML VIAL SC PRN ×2 (17:55→23:28)
[2021-07-21] MEDS: Amiodarone 200 MG TAB PO SCH (21:06)
[2021-07-21] MEDS: Apixaban 5 MG TAB PO SCH (21:06)
[2021-07-22] MEDS: Nicotine 21 MG PATCH TD SCH (01:24)
[2021-07-22 05:33] LABS: #Basophils 0.1 thou/uL (0.0-0.2); #Eosinphils 0.3 thou/uL (0.0-0.7); #Monocytes 0.7 thou/uL (0.11-0.59); #Neutrophils 5.3 thou/uL (1.40-6.50); %Basophils 0.8 % (0.0-1.0); %Eosinophils 2.5 % (0.0-10.0); %Lymphocytes 38.5 % (21.0-51.0); %Monocytes 6.6 % (0.0-10.0); %Neutrophils 51.6 % (42.0-75.0); Hemoglobin 14.1 g/dL (14.0-18.0); Mean Corpuscular HGB CONC 32.4 g/dL (32.0-36.0); Mean Corpuscular Hemoglobin 30.6 pg (27.0-31.0); Mean Corpuscular Volume 94.3 fL (78.0-98.0); Mean Platelet Volume 10.5 fL (7.4-10.4); Platelet Count 184 thou/uL (130-400); RBC Distribution Width 12.9 % (11.5-14.5); Red Blood Cell (RBC) Count 4.61 mill/uL (4.70-6.10); White Blood Cell (WBC) Count 10.3 thou/uL (4.8-10.8)
[2021-07-22 05:47] LABS: Anion Gap 10 mmol/L (10-20); BUN (Urea Nitrogen) 16 mg/dL (8.4-25.7); Calc. Creatinine Clearance 108 mL/min (70-130); Calcium 8.9 mg/dL (7.8-10.44); Carbon Dioxide 27 mmol/L (23-31); Chloride 103 mmol/L (98-107); Glucose 238 mg/dL (80-115); Magnesium 2.1 mg/dL (1.6-2.6); Potassium 4.3 mmol/L (3.5-5.1); Sodium 136 mmol/L (136-145)
[2021-07-22 05:50] LABS: Phosphorus 3.3 mg/dL (2.3-4.7)
[2021-07-22] MEDS: Aspirin 81 mg Enteric Coated Tablet PO SCH (08:53)
[2021-07-22] MEDS: Lantus 1000 UNITS/10 ML VIAL SC SCH (08:53)
[2021-07-22] MEDS: Apixaban 5 MG TAB PO SCH ×2 (08:53→20:28)
[2021-07-22] MEDS: Amiodarone 200 MG TAB PO SCH ×2 (08:53→20:28)
[2021-07-22] MEDS: Multivit, Therapeutic 1 TAB PO SCH (08:53)
[2021-07-22] MEDS ORDERED: Calcium Carbonate 500 MG ChewTAB PO PRN (09:04)
[2021-07-22] MEDS ORDERED: Artificial Tear Sol 15 ML BOT EA EYE PRN (09:04)
[2021-07-22] MEDS ORDERED: GUAIFENESIN SF SOLN 200 MG/10 ML UDCUP PO PRN (09:04)
[2021-07-22] MEDS ORDERED: Metoclopramide HCl 10 MG/2 ML VIAL IVP PRN (09:04)
[2021-07-22] MEDS ORDERED: hydrALAZINE 20 MG/ML VIAL SLOW IVP PRN (09:04)
[2021-07-22] MEDS ORDERED: HYDROcodone/Acetaminophen 5/325 mg Tablet PO PRN (09:04)
[2021-07-22] MEDS ORDERED: Loratadine 10 MG TAB PO PRN (09:04)
[2021-07-22] MEDS ORDERED: Cepastat Lozenges 1 LOZ PO PRN (09:04)
[2021-07-22] MEDS ORDERED: Loperamide HCl 2 MG CAP PO PRN (09:04)
[2021-07-22] MEDS ORDERED: Hydrocerin (Eucerin) Cream 120 gm Jar TOP PRN (09:04)
[2021-07-22] MEDS ORDERED: Senokot S 8.6-50 MG TAB PO PRN (09:04)
[2021-07-22] MEDS ORDERED: Bisacodyl 5 MG TAB PO PRN (09:04)
[2021-07-22] MEDS: HumaLOG 300 UNITS/3 ML VIAL SC PRN ×3 (12:04→22:11)
[2021-07-23] MEDS: Nicotine 21 MG PATCH TD SCH (00:54)
[2021-07-23 04:52] LABS: #Eosinphils 0.3 thou/uL (0.0-0.7); #Lymphocytes 3.2 thou/uL (1.20-3.40); #Monocytes 0.6 thou/uL (0.11-0.59); #Neutrophils 3.5 thou/uL (1.40-6.50); %Basophils 0.6 % (0.0-1.0); %Lymphocytes 42.4 % (21.0-51.0); %Monocytes 7.3 % (0.0-10.0); %Neutrophils 45.8 % (42.0-75.0); Hemoglobin 14.5 g/dL (14.0-18.0); Mean Corpuscular HGB CONC 32.3 g/dL (32.0-36.0); Mean Corpuscular Hemoglobin 30.6 pg (27.0-31.0); Mean Corpuscular Volume 94.8 fL (78.0-98.0); Mean Platelet Volume 9.9 fL (7.4-10.4); Platelet Count 166 thou/uL (130-400); RBC Distribution Width 12.9 % (11.5-14.5); Red Blood Cell (RBC) Count 4.72 mill/uL (4.70-6.10); White Blood Cell (WBC) Count 7.6 thou/uL (4.8-10.8)
[2021-07-23 05:09] LABS: Anion Gap 10 mmol/L (10-20); BUN (Urea Nitrogen) 13 mg/dL (8.4-25.7); Calc. Creatinine Clearance 106 mL/min (70-130); Calcium 9.3 mg/dL (7.8-10.44); Carbon Dioxide 27 mmol/L (23-31); Chloride 106 mmol/L (98-107); Glucose 171 mg/dL (80-115); Magnesium 1.9 mg/dL (1.6-2.6); Potassium 4.1 mmol/L (3.5-5.1); Sodium 139 mmol/L (136-145)
[2021-07-23] MEDS: HumaLOG 300 UNITS/3 ML VIAL SC PRN ×3 (06:58→17:31)
[2021-07-23] MEDS: Multivit, Therapeutic 1 TAB PO SCH (08:31)
[2021-07-23] MEDS: Aspirin 81 mg Enteric Coated Tablet PO SCH (08:31)
[2021-07-23] MEDS: Amiodarone 200 MG TAB PO SCH ×3 (08:31→21:01)
[2021-07-23] MEDS: Apixaban 5 MG TAB PO SCH ×2 (08:31→21:01)
[2021-07-23] MEDS: Lantus 1000 UNITS/10 ML VIAL SC SCH (08:32)
[2021-07-24] MEDS: Nicotine 21 MG PATCH TD SCH (01:28)
[2021-07-24] MEDS: HumaLOG 300 UNITS/3 ML VIAL SC PRN (06:19)
[2021-07-24 07:51] VITALS: BP 121/63; TEMP 98.3
[2021-07-24] MEDS: Aspirin 81 mg Enteric Coated Tablet PO SCH (08:50)
[2021-07-24] MEDS: Multivit, Therapeutic 1 TAB PO SCH (08:50)
[2021-07-24] MEDS: Lantus 1000 UNITS/10 ML VIAL SC SCH (08:51)
[2021-07-24] MEDS: Amiodarone 200 MG TAB PO SCH (08:51)
[2021-07-24] MEDS: Apixaban 5 MG TAB PO SCH (08:51)
== END 2021-07-24 11:28 | disposition home or self-care (01) | DRG 274 ==
LOC: 2NO 17:12 → OBSVTOIN 07-20 10:56
PROVIDERS: ADMIT Family Medicine; ATTEND Internal Medicine
PROC: 4A023FZ Measurement of Cardiac Rhythm, Percutaneous Approach (ICD-10-PCS; principal; 2021-07-20)
PROC: 4A0234Z Measurement of Cardiac Electrical Activity, Percutaneous Approach (ICD-10-PCS; 2021-07-20)
DX: I47.2 Ventricular tachycardia (principal); I48.0 Paroxysmal atrial fibrillation; Z66 Do not resuscitate; Z20.822 Contact with and (suspected) exposure to COVID-19; E11.9 Type 2 diabetes mellitus without complications; I25.10 Atherosclerotic heart disease of native coronary artery without angina pectoris; I10 Essential (primary) hypertension; F17.210 Nicotine dependence, cigarettes, uncomplicated; R77.8 Other specified abnormalities of plasma proteins; E78.5 Hyperlipidemia, unspecified; I49.3 Ventricular premature depolarization; Z79.82 Long term (current) use of aspirin; Z79.4 Long term (current) use of insulin; Z79.899 Other long term (current) drug therapy; Z90.49 Acquired absence of other specified parts of digestive tract; Z98.890 Other specified postprocedural states; I25.2 Old myocardial infarction
CPT/HCPCS: 36415; 36416; 80048; 82553; 83735; 84100; 84484; 85025; 93306; 93613; 93620; 93621; 93880; C1730; G0378; J1644; J1815; J2001; J2370; J2405; J2704; J3010

== ENCOUNTER 2021-11-10 13:32 | Observation (INO) | payer MEDICARE ==
[~2021-11-10 13:32] MED LIST: Iopamidol-370 76% 500 ML 1 ML ONE
[2021-11-10 14:10] LABS: #Basophils 0.1 thou/uL (0.0-0.2); #Eosinphils 0.2 thou/uL (0.0-0.7); #Lymphocytes 3.2 thou/uL (1.20-3.40); #Monocytes 0.8 thou/uL (0.11-0.59); #Neutrophils 4.4 thou/uL (1.40-6.50); %Basophils 1.2 % (0.0-1.0); %Eosinophils 2.3 % (0.0-10.0); %Lymphocytes 36.6 % (21.0-51.0); %Monocytes 9.7 % (0.0-10.0); %Neutrophils 50.2 % (42.0-75.0); Mean Corpuscular HGB CONC 33.8 g/dL (32.0-36.0); Mean Corpuscular Hemoglobin 31.8 pg (27.0-31.0); Mean Corpuscular Volume 94.3 fL (78.0-98.0); Mean Platelet Volume 9.3 fL (7.4-10.4); Platelet Count 177 thou/uL (130-400); Red Blood Cell (RBC) Count 5.02 mill/uL (4.70-6.10); White Blood Cell (WBC) Count 8.7 thou/uL (4.8-10.8)
[2021-11-10 14:21] LABS: INR-International Normal Ratio 0.9; PTT 25.7 sec (22.9-36.1)
[2021-11-10 14:31] LABS: ALT (SGPT) 24 U/L (8-55); AST (SGOT) 19 U/L (5-34); Albumin 4.1 g/dL (3.4-4.8); Alkaline Phosphatase 65 U/L (40-110); Anion Gap 12 mmol/L (10-20); BUN (Urea Nitrogen) 15 mg/dL (8.4-25.7); Bilirubin, Total 0.4 mg/dL (0.2-1.2); Calc. Creatinine Clearance 0 mL/min (70-130); Carbon Dioxide 27 mmol/L (23-31); Chloride 102 mmol/L (98-107); Globulin 3.9 g/dL (2.4-3.5); Glucose 201 mg/dL (80-115); Potassium 4.3 mmol/L (3.5-5.1); Sodium 137 mmol/L (136-145)
[2021-11-10] MEDS ORDERED: Aspirin 81 mg Enteric Coated Tablet ONE (16:26)
[2021-11-10 16:58] LABS: Amphetamine Not Detected (NotDetected); Barbiturates Screen Not Detected (NotDetected); Benzodiazepine Screen Not Detected (NotDetected); Cocaine Metabolite Screen Not Detected (NotDetected); Methadone Not Detected (NotDetected); Methamphetamine Not Detected (NotDetected); Opiate Screen Not Detected (NotDetected); Oxycodone Screen Not Detected (NotDetected); Phencyclidine (PCP) Not Detected (NotDetected); THC/Cannabinoid Screen Not Detected (NotDetected); Tricyclic Screen Not Detected (NotDetected)
[2021-11-10] MEDS ORDERED: HumaLOG 300 UNITS/3 ML VIAL SC PRN ×2 (20:29)
[2021-11-10] MEDS ORDERED: Dextrose 50% Abboject 50 ML SYRINGE SLOW IVP PRN (20:29)
[2021-11-10] MEDS ORDERED: Dextrose 5% in Water 1,000 ML IV PRN (20:29)
[2021-11-10 20:37] LABS: Bilirubin Negative (Negative); Blood, Urine Negative (Negative); Clarity Clear (Clear); Glucose, Urine (Dipstick) 100 mg/dL (Negative); Ketone, Urine Negative (Negative); Leukocyte Negative Leu/uL (Negative); Nitrite Negative (Negative); Protein, Urine (Dipstick) Negative (Neg-Trace); Specific Gravity, Urine 1.022 (1.002-1.036); Urobilinogen Normal mg/dL (Less than 2)
[2021-11-10] MEDS ORDERED: Ondansetron PF 4 MG/2 ML Vial IVP PRN (20:37)
[2021-11-10] MEDS ORDERED: Senokot S 8.6-50 MG TAB PO PRN (20:37)
[2021-11-10] MEDS ORDERED: Acetaminophen 325 MG TAB PO PRN (20:37)
[2021-11-10] MEDS ORDERED: Nicotine 14 MG PATCH TD PRN (20:37)
[2021-11-10] MEDS ORDERED: Ondansetron ODT 4 MG TAB PO PRN (20:37)
[2021-11-10 20:45] LABS: Troponin I 0.012 ng/mL (< 0.028)
[2021-11-10] MEDS ORDERED: hydrALAZINE 20 MG/ML VIAL SLOW IVP PRN (20:48)
[2021-11-10] MEDS ORDERED: Albuterol Sulfate 2.5 mg/3 ml Neb NEB PRN (20:56)
[2021-11-10] MEDS ORDERED: Atorvastatin Calcium 40 MG TAB PO SCH (21:00)
[2021-11-10] MEDS ORDERED: Amiodarone 200 MG TAB PO SCH (21:00)
[2021-11-10] MEDS ORDERED: Nitroglycerin 0.4 MG TAB (25 Tab Bottle) SL PRN (21:00)
[2021-11-10 22:38] LABS: SARS-CoV-2 NAA Rapid Test Not Detected (NotDetected)
[2021-11-10 23:42] LABS: Troponin I 0.015 ng/mL (< 0.028)
[2021-11-11 00:51] VITALS: BMI 29.2
[2021-11-11 04:57] LABS: #Basophils 0.1 thou/uL (0.0-0.2); #Eosinphils 0.2 thou/uL (0.0-0.7); #Lymphocytes 3.2 thou/uL (1.20-3.40); #Monocytes 0.6 thou/uL (0.11-0.59); #Neutrophils 3.1 thou/uL (1.40-6.50); %Basophils 1.2 % (0.0-1.0); %Lymphocytes 44.7 % (21.0-51.0); %Monocytes 7.7 % (0.0-10.0); %Neutrophils 43.3 % (42.0-75.0); Hemoglobin 14.9 g/dL (14.0-18.0); Mean Corpuscular Hemoglobin 31.5 pg (27.0-31.0); Mean Corpuscular Volume 95.4 fL (78.0-98.0); Mean Platelet Volume 9.6 fL (7.4-10.4); Platelet Count 181 thou/uL (130-400); RBC Distribution Width 13.2 % (11.5-14.5); Red Blood Cell (RBC) Count 4.73 mill/uL (4.70-6.10); White Blood Cell (WBC) Count 7.1 thou/uL (4.8-10.8)
[2021-11-11 05:31] LABS: Anion Gap 11 mmol/L (10-20); BUN (Urea Nitrogen) 16 mg/dL (8.4-25.7); Calc. Creatinine Clearance 108 mL/min (70-130); Calcium 9.2 mg/dL (7.8-10.44); Carbon Dioxide 26 mmol/L (23-31); Cardiac Risk 8.1 (Less than 4.5); Chloride 105 mmol/L (98-107); Cholesterol 260 mg/dl (< 200 Desired); HDL Cholesterol 32 mg/dL (>60 Neg Risk); LDL Cholesterol, Calculated 171 mg/dL; Potassium 4.1 mmol/L (3.5-5.1); Sodium 138 mmol/L (136-145); Triglycerides 285 mg/dL (Less than 150)
[2021-11-11 05:35] LABS: Glucose 239 mg/dL (80-115)
[2021-11-11] MEDS ORDERED: Amiodarone 200 MG TAB PO SCH (09:00)
[2021-11-11] MEDS ORDERED: Multivit, Therapeutic 1 TAB PO SCH (09:00)
[2021-11-11] MEDS ORDERED: Aspirin 81 mg Enteric Coated Tablet PO SCH (09:00)
[2021-11-11 16:06] VITALS: BP 121/70; TEMP 98
== END 2021-11-11 16:45 | disposition home or self-care (01) ==
LOC: ERS 13:32 → NEURO 19:14
PROVIDERS: ADMIT Internal Medicine; ATTEND Internal Medicine
DX: R07.9 Chest pain, unspecified (principal); R42 Dizziness and giddiness; R41.0 Disorientation, unspecified; I10 Essential (primary) hypertension; E11.65 Type 2 diabetes mellitus with hyperglycemia; I25.10 Atherosclerotic heart disease of native coronary artery without angina pectoris; I25.2 Old myocardial infarction; E78.5 Hyperlipidemia, unspecified; I48.0 Paroxysmal atrial fibrillation; K02.9 Dental caries, unspecified; K04.7 Periapical abscess without sinus; Z87.891 Personal history of nicotine dependence; Z79.82 Long term (current) use of aspirin; Z79.84 Long term (current) use of oral hypoglycemic drugs; Z79.899 Other long term (current) drug therapy; Z95.5 Presence of coronary angioplasty implant and graft; Z20.822 Contact with and (suspected) exposure to COVID-19
CPT/HCPCS: 70450; 70496; 70498; 70551; 71045; 80048; 80053; 80061; 80306; 81003; 82962 ×2; 83036; 84484 ×2; 85025 ×2; 85610; 85730; 93005; 94760; 95712; 95819; 95957; 97139 ×3; 99285; U0002; 36415; 36416; G0378; Q9967

== ENCOUNTER 2022-02-08 16:14 | Observation (INO) | payer MEDICARE ==
[2022-02-08 16:45] LABS: #Basophils 0.1 thou/uL (0.0-0.2); #Eosinphils 0.1 thou/uL (0.0-0.7); #Lymphocytes 2.2 thou/uL (1.20-3.40); #Monocytes 1.1 thou/uL (0.11-0.59); #Neutrophils 10.6 thou/uL (1.40-6.50); %Basophils 0.4 % (0.0-1.0); %Eosinophils 0.9 % (0.0-10.0); %Lymphocytes 15.5 % (21.0-51.0); %Neutrophils 75.1 % (42.0-75.0); Hemoglobin 13.2 g/dL (14.0-18.0); Mean Corpuscular HGB CONC 32.6 g/dL (32.0-36.0); Mean Corpuscular Hemoglobin 30.9 pg (27.0-31.0); Mean Corpuscular Volume 94.8 fL (78.0-98.0); Mean Platelet Volume 7.7 fL (7.4-10.4); Platelet Count 368 thou/uL (130-400); RBC Distribution Width 12.3 % (11.5-14.5); Red Blood Cell (RBC) Count 4.28 mill/uL (4.70-6.10); White Blood Cell (WBC) Count 14.1 thou/uL (4.8-10.8)
[2022-02-08 17:18] LABS: ALT (SGPT) 18 U/L (8-55); AST (SGOT) 15 U/L (5-34); Albumin 3.5 g/dL (3.4-4.8); Alkaline Phosphatase 78 U/L (40-110); Anion Gap 16 mmol/L (10-20); BUN (Urea Nitrogen) 14 mg/dL (8.4-25.7); Bilirubin, Total 0.6 mg/dL (0.2-1.2); Calc. Creatinine Clearance 0 mL/min (70-130); Calcium 9.2 mg/dL (7.8-10.44); Carbon Dioxide 25 mmol/L (23-31); Chloride 98 mmol/L (98-107); Globulin 3.3 g/dL (2.4-3.5); Glucose 93 mg/dL (80-115); Lipase 5 U/L (8-78); Potassium 4.8 mmol/L (3.5-5.1); Protein, Total 6.8 g/dL (5.8-8.1); Sodium 134 mmol/L (136-145)
[2022-02-08] MEDS ORDERED: Aspirin Chewable 81 MG TAB ONE (18:19)
[2022-02-08] MEDS ORDERED: Acetaminophen 325 MG TAB PO PRN ×2 (19:11→19:45)
[2022-02-08] MEDS ORDERED: Senokot S 8.6-50 MG TAB PO PRN (19:11)
[2022-02-08] MEDS ORDERED: Ondansetron PF 4 MG/2 ML Vial IVP PRN ×2 (19:11→19:45)
[2022-02-08] MEDS ORDERED: Nitroglycerin 0.4 MG TAB (25 Tab Bottle) SL PRN (19:26)
[2022-02-08 19:36] VITALS: BMI 24.7
[2022-02-08] MEDS ORDERED: Ondansetron ODT 4 MG TAB SL PRN (19:45)
[2022-02-08] MEDS ORDERED: Nicotine 21 MG PATCH TD SCH (20:00)
[2022-02-08 20:16] LABS: Troponin I 0.016 ng/mL (< 0.028)
[2022-02-08] MEDS ORDERED: Dextrose 5% in Water 1,000 ML IV PRN (20:49)
[2022-02-08] MEDS ORDERED: Dextrose 50% Abboject 50 ML SYRINGE SLOW IVP PRN (20:49)
[2022-02-08] MEDS ORDERED: HumaLOG 300 UNITS/3 ML VIAL SC PRN ×2 (20:49)
[2022-02-08] MEDS ORDERED: traZODone HCl 50 MG TAB PO SCH (21:00)
[2022-02-08] MEDS ORDERED: Apixaban 5 MG TAB PO SCH (21:15)
[2022-02-08] MEDS: Metoclopramide HCl 10 MG/2 ML VIAL IVP SCH (21:25)
[2022-02-08] MEDS: Sodium Chloride 0.9% 1,000 ML IV SCH (22:20)
[2022-02-08 23:03] LABS: Troponin I 0.013 ng/mL (< 0.028)
[2022-02-08] MEDS ORDERED: Magnesium Citrate 300 ML BOT PO SCH (23:45)
[2022-02-09 00:20] LABS: SARS-CoV-2 PCR by NAA Not Detected (NotDetected)
[2022-02-09 02:09] LABS: Troponin I 0.011 ng/mL (< 0.028)
[2022-02-09] MEDS: Metoclopramide HCl 10 MG/2 ML VIAL IVP SCH ×2 (05:12→13:51)
[2022-02-09 05:48] LABS: #Basophils 0.1 thou/uL (0.0-0.2); #Eosinphils 0.2 thou/uL (0.0-0.7); #Lymphocytes 2.4 thou/uL (1.20-3.40); #Monocytes 1.2 thou/uL (0.11-0.59); #Neutrophils 9.1 thou/uL (1.40-6.50); %Basophils 0.4 % (0.0-1.0); %Eosinophils 1.8 % (0.0-10.0); %Lymphocytes 18.7 % (21.0-51.0); %Monocytes 9.6 % (0.0-10.0); %Neutrophils 69.5 % (42.0-75.0); Hemoglobin 12.6 g/dL (14.0-18.0); Mean Corpuscular HGB CONC 32.3 g/dL (32.0-36.0); Mean Corpuscular Hemoglobin 30.8 pg (27.0-31.0); Mean Corpuscular Volume 95.2 fL (78.0-98.0); Mean Platelet Volume 8.1 fL (7.4-10.4); Platelet Count 335 thou/uL (130-400); RBC Distribution Width 12.3 % (11.5-14.5); Red Blood Cell (RBC) Count 4.11 mill/uL (4.70-6.10)
[2022-02-09 05:56] LABS: Hemoglobin A1c 6.6 % (4.0-6.0)
[2022-02-09 06:15] LABS: ALT (SGPT) 20 U/L (8-55); AST (SGOT) 17 U/L (5-34); Albumin 3.3 g/dL (3.4-4.8); Alkaline Phosphatase 73 U/L (40-110); Anion Gap 13 mmol/L (10-20); BUN (Urea Nitrogen) 13 mg/dL (8.4-25.7); Bilirubin, Total 0.4 mg/dL (0.2-1.2); Calc. Creatinine Clearance 95 mL/min (70-130); Calcium 9.3 mg/dL (7.8-10.44); Carbon Dioxide 25 mmol/L (23-31); Cardiac Risk 7.7 (Less than 4.5); Chloride 100 mmol/L (98-107); Cholesterol 176 mg/dl (< 200 Desired); Globulin 3.9 g/dL (2.4-3.5); Glucose 126 mg/dL (80-115); HDL Cholesterol 23 mg/dL (>60 Neg Risk); LDL Cholesterol, Calculated 129 mg/dL; Potassium 4.6 mmol/L (3.5-5.1); Protein, Total 7.2 g/dL (5.8-8.1); Sodium 133 mmol/L (136-145); Triglycerides 120 mg/dL (Less than 150)
[2022-02-09] MEDS ORDERED: Bisacodyl 10 MG SUPP PR PRN (07:25)
[2022-02-09 08:17] LABS: Lactic Acid 0.6 mmol/L (0.5-2.2)
[2022-02-09] MEDS ORDERED: Amiodarone 200 MG TAB PO SCH (09:00)
[2022-02-09] MEDS ORDERED: Aspirin 81 mg Enteric Coated Tablet PO SCH (09:00)
[2022-02-09] MEDS ORDERED: Polyethylene Glycol 3350 17 GM Packet PO SCH (09:00)
[2022-02-09] MEDS ORDERED: Apixaban 5 MG TAB PO SCH (09:00)
[2022-02-09] MEDS ORDERED: Regadenoson 0.4 MG/5 ML SYRINGE ONE (13:33)
[2022-02-09 16:00] LABS: Bacteria/HPF None Seen HPF (None Seen); Bilirubin Negative (Negative); Blood, Urine Negative (Negative); Clarity Clear (Clear); Glucose, Urine (Dipstick) 100 mg/dL (Negative); Ketone, Urine 20 mg/dL (Negative); Leukocyte Negative Leu/uL (Negative); Nitrite Negative (Negative); Protein, Urine (Dipstick) 30 mg/dL (Neg-Trace); RBC/HPF 0-3 HPF (0-3); Squamous Epithelial 0-3 HPF (0-3); Urobilinogen Normal mg/dL (Less than 2); WBC/HPF 0-3 HPF (0-3)
[2022-02-09 16:02] LABS: Urine Culture Reflex No No
[2022-02-09] MEDS: Sodium Chloride 0.9% 1,000 ML IV SCH (16:06)
[2022-02-09 16:39] VITALS: BP 122/61; TEMP 98.1
== END 2022-02-09 18:01 | disposition home health service (06) ==
LOC: ERS 16:14 → 2SW 18:22
PROVIDERS: ADMIT Internal Medicine; ATTEND Internal Medicine
DX: R07.9 Chest pain, unspecified (principal); K59.01 Slow transit constipation; E11.40 Type 2 diabetes mellitus with diabetic neuropathy, unspecified; E78.5 Hyperlipidemia, unspecified; F17.210 Nicotine dependence, cigarettes, uncomplicated; I25.2 Old myocardial infarction; I48.20 Chronic atrial fibrillation, unspecified; Z79.01 Long term (current) use of anticoagulants; Z79.4 Long term (current) use of insulin; Z79.82 Long term (current) use of aspirin; Z79.899 Other long term (current) drug therapy; Z20.822 Contact with and (suspected) exposure to COVID-19
CPT/HCPCS: 71045; 74177; 78452; 80053; 80061; 81001; 82962 ×2; 83036; 83605; 83690; 84145; 84484 ×3; 85025; 93005; 93017; 97139 ×6; 99285; A9500; U0003; U0005; 36415; 36416; 84443; 96374; 96376; G0378; J2765; J2785; J7050; Q9967